=== PATIENT | male | born 1985 | race Caucasian/White ===

== ENCOUNTER 2017-05-18 09:08 | Outpatient (CLI) | payer BC ==
--- NOTE | 2017-05-18 12:07 | CT ---
CT ANGIOGRAM OF THE HEAD: Date: 05-18-17 Comparison: None. History: Post-concussion syndrome, headache, numbness and tingling, concussion three years ago. Technique: Serial axial CT imaging at 5 mm intervals from vertex through the skull base obtained with out contrast. Serial axial CT imaging was obtained at 1.25 mm intervals from skull base through verte x following the IV administration of contrast media using a CT angiogram protocol. Coronal and sagitt al 3D reformatted imaging obtained. FINDINGS: NONCONTRAST ENHANCED CT HEAD: The imaged paranasal sinuses/mastoid air cells are well aerated. There is no displaced calvarial frac ture, intracranial hemorrhage, midline shift or mass effect seen. CT ANGIOGRAM HEAD: Imaged distal portions of bilateral vertebral arteries appear unremarkable. The basilar artery and its branches are patent. There is a patent posterior communicating artery noted on the left. There is no sacular aneurysm, high grade stenosis, or vascular occlusion involving the posterior circ ulation. Bilateral posterior cerebral arteries appear unremarkable. Imaged portions of bilateral internal carotid arteries appear within normal limits. The bilateral A1 segments in the region of the anterior communicating artery appear unremarkable. Dis darling ILA branches are within normal limits. The ICA bifurcation and MCA bifurcation, as well as the M1 segment appears unremarkable bilaterally. Distal MCA and ILA branches appear grossly unremarkable. No sacular aneurysm, high grade stenosis, or vascular occlusion is evident within the anterior circulation. IMPRESSION: Unremarkable CT angiogram of the head. POS: LISBETH
== END 2017-05-18 09:09 | disposition home or self-care (01) ==
LOC: CT 09:08
PROVIDERS: ATTEND Psychiatry & Neurology Neurology
DX: F07.81 Postconcussional syndrome (principal)
CPT/HCPCS: 70496